=== PATIENT | female | born 2000 | race Caucasian/White ===

== ENCOUNTER 2019-11-18 07:12 | Outpatient (CLI) | payer OTHER, SELFPAY ==
[2019-11-20 23:08] LABS: SARS-CoV-2 RNA Undetected (Undetected); SARS-CoV-2 Specimen Source Nasopharynx
== END 2019-11-18 07:32 ==
PROVIDERS: Visit Provider Family Medicine
DX: Z11.59 Encounter for screening for other viral diseases (principal)
CPT/HCPCS: U0003

== ENCOUNTER 2020-01-21 09:51 | Outpatient (REF) | payer OTHER, SELFPAY ==
[2020-01-21 22:07] LABS: HCT 36.9 % (36.0-46.0); HGB 12.4 g/dL (11.2-15.7); MCH 29.7 pg (27.0-33.0); MCHC 33.6 % (32.0-36.0); MCV 88.5 fL (80-95); MPV 10.4 fL (8.0-11.0); Platelet Count 275 10^3/uL (130-400); RBC 4.17 10^6/uL (3.93-5.22); RDW 12.1 % (11.7-14.6); RDW-SD 39.4 fL
[2020-01-21 22:30] LABS: ALT 21 U/L (14-59); AST 16 U/L (15-37); Albumin 4.1 g/dL (3.4-5.0); Alkaline Phosphatase 75 U/L (46-116); Anion Gap 9.9 mmol/L (3-11); BUN 10 mg/dL (7-18); Bilirubin, Total 0.5 mg/dL (0.2-1.0); CO2 24.1 mmol/L (21.0-32.0); CREATININE 0.68 mg/dL (0.55-1.02); Calcium 8.8 mg/dL (8.5-10.1); Chloride 103 mmol/L (98-107); Glucose 94 mg/dL (74-106); Potassium 4.1 mmol/L (3.5-5.1); Sodium 137 mmol/L (136-145); Total Protein 7.2 g/dL (6.4-8.2)
[2020-01-21 22:57] LABS: ESR 9 mm/hr (0-20)
[2020-01-22 04:57] LABS: Vitamin D 25 Total 29.8 ng/ml (30-100)
== END 2020-01-21 10:11 ==
LOC: NCHCN 09:51
PROVIDERS: Visit Provider Nurse Practitioner Community Health
DX: R14.0 Abdominal distension (gaseous) (principal); R53.83 Other fatigue; R12 Heartburn; F41.8 Other specified anxiety disorders; F98.8 Other specified behavioral and emotional disorders with onset usually occurring in childhood and adolescence; M25.50 Pain in unspecified joint; Z87.19 Personal history of other diseases of the digestive system; Z83.2 Family history of diseases of the blood and blood-forming organs and certain disorders involving the immune mechanism
CPT/HCPCS: 80053; 82306; 85027; 85652; 87338; 84443

== ENCOUNTER 2020-01-26 16:06 | Outpatient (REF) | payer OTHER, SELFPAY ==
[2020-01-30 16:28] LABS: Helicobacter pylori Ag, Feces Negative (Negative)
== END 2020-01-26 16:26 ==
LOC: NCHCN 16:06
PROVIDERS: Visit Provider Nurse Practitioner Community Health
DX: R14.0 Abdominal distension (gaseous) (principal); Z87.19 Personal history of other diseases of the digestive system
CPT/HCPCS: 87338

== ENCOUNTER 2020-02-18 14:56 | Outpatient (REF) | payer OTHER, SELFPAY ==
[2020-03-01 16:33] LABS: IgA 292 mg/dL (85-499); Tissue Transglutaminase IgA <1.2 U/mL (<4.0)
[2020-03-01 16:34] LABS: Interpretation Negative
== END 2020-02-18 15:16 ==
LOC: NCHCN 14:56
PROVIDERS: Visit Provider Nurse Practitioner Community Health
DX: R14.0 Abdominal distension (gaseous) (principal)
CPT/HCPCS: 82784; 83516

== ENCOUNTER 2020-03-15 11:43 | Outpatient (REF) | payer OTHER, SELFPAY ==
--- NOTE | 2020-03-15 09:15 | PAPFT_PTH ---
PATIENT: Antonio Vincent LOC: [facility] U#:[id number] AGE/SX: 19/F ROOM: RE03/15/[address]: Stephanie Shen : 2000 BED: DIS: 03/15/2020 SPEC #: [id number] RECD: 03/16/20 12:56 STATUS: [place] REQ #: [id number] BETI: 03/15/20 09:[address]: Stephanie Shen DEPT: [facility] Cytology RECD BY: Cherie Albreto Tissues: 1 - CX/ENDOCX FOR PAP SMEARS Procedures: PAP THIN PREP/[facility] Screening Comments: [id number]
== END 2020-03-15 12:03 ==
LOC: NCHCN 11:43
PROVIDERS: PCP Nurse Practitioner Community Health; Visit Provider Nurse Practitioner Community Health
DX: Z12.4 Encounter for screening for malignant neoplasm of cervix (principal)
CPT/HCPCS: 88142

== ENCOUNTER 2020-10-14 13:17 | Outpatient (REF) | payer OTHER, SELFPAY ==
[2020-10-14 13:31] LABS: Abs Immature Grans 0.01 10^3/uL (0.0-0.06); Absolute Basophil Count 0.03 10^3/uL (0.0-0.2); Absolute Eosinophil Count 0.13 10^3/uL (0.0-0.7); Absolute Lymphocyte Count 1.18 10^3/uL (1.2-3.4); Absolute Monocyte Count 0.58 10^3/uL (0.1-0.8); Absolute Neutrophil Count 2.77 10^3/uL (1.2-6.7); Basophils % 0.6; Eosinophils % 2.8; HCT 37.6 % (36.0-46.0); HGB 12.5 g/dL (11.2-15.7); Immature Grans % 0.2; Lymphocytes % 25.1; MCH 28.9 pg (27.0-33.0); MCHC 33.2 % (32.0-36.0); MPV 10.5 fL (8.0-11.0); Monocytes % 12.3; Nucleated RBC 0 %; Platelet Count 323 10^3/uL (130-400); RBC 4.32 10^6/uL (3.93-5.22); RDW 12.8 % (11.7-14.6); RDW-SD 40.7 fL
[2020-10-14 14:04] LABS: Vitamin B12 421 pg/mL (193-986)
== END 2020-10-14 13:18 | disposition home or self-care (01) ==
LOC: NCHCN 13:17
PROVIDERS: PCP Nurse Practitioner Community Health; Visit Provider Nurse Practitioner Family
DX: R41.840 Attention and concentration deficit (principal); F43.12 Post-traumatic stress disorder, chronic
CPT/HCPCS: 82607; 85025

== ENCOUNTER 2020-11-06 11:25 | Outpatient (REF) | payer OTHER, SELFPAY ==
[2020-11-06 16:03] LABS: Abs Immature Grans 0.05 10^3/uL (0.0-0.06); Absolute Basophil Count 0.03 10^3/uL (0.0-0.2); Absolute Eosinophil Count 0.01 10^3/uL (0.0-0.7); Absolute Lymphocyte Count 0.39 10^3/uL (1.2-3.4); Basophils % 0.2; Eosinophils % 0.1; HCT 37.3 % (36.0-46.0); HGB 12.2 g/dL (11.2-15.7); Immature Grans % 0.4; Lymphocytes % 2.8; MCH 29.2 pg (27.0-33.0); MCHC 32.7 % (32.0-36.0); MCV 89.2 fL (80-95); MPV 10.9 fL (8.0-11.0); Neutrophils % 90.5; Nucleated RBC 0 %; Platelet Count 244 10^3/uL (130-400); RBC 4.18 10^6/uL (3.93-5.22); RDW-SD 42.9 fL; WBC 13.94 10^3/uL (4.4-10.8)
[2020-11-06 16:07] LABS: Absolute Monocyte Count 0.84 10^3/uL (0.1-0.8); Absolute Neutrophil Count 12.62 10^3/uL (1.2-6.7)
[2020-11-06 16:38] LABS: Anion Gap 13.4 mmol/L (3-11); BUN 8 mg/dL (7-18); CO2 22.6 mmol/L (21.0-32.0); CREATININE 0.9 mg/dL (0.55-1.02); Calcium 9.4 mg/dL (8.5-10.1); Chloride 102 mmol/L (98-107); Glucose 135 mg/dL (74-106); Potassium 3.4 mmol/L (3.5-5.1); Sodium 138 mmol/L (136-145)
[2020-11-06 17:24] LABS: C Diff PCR Negative (Negative)
[2020-11-08 12:50] LABS: Campylobacter PCR Positive (Negative); Salmonella PCR Negative (Negative); Shiga Toxin PCR Negative (Negative); Shigella/Enteroinvasive Ecoli Negative (Negative)
[2020-11-08 13:32] LABS: COVID-19 RT-PCR UVMMC Result Negative (Negative)
== END 2020-11-06 11:26 | disposition home or self-care (01) ==
LOC: LBN 11:25
PROVIDERS: PCP Nurse Practitioner Community Health; Visit Provider Physician Assistant Medical
DX: R50.9 Fever, unspecified (principal); R19.7 Diarrhea, unspecified; R11.2 Nausea with vomiting, unspecified; Z20.822 Contact with and (suspected) exposure to COVID-19
CPT/HCPCS: 80048; 87493; 87505; U0003; 85025